=== PATIENT | female | born 1995 | race Caucasian/White ===

== ENCOUNTER 2018-12-28 09:45 | Emergency (ER) | payer OTHER ==
[~2018-12-28] VITALS: Ht 162.6 cm; Wt 54.4 kg
[2018-12-28 10:45] LABS: INFLUENZA A ANTIGEN Negative (Negative); INFLUENZA B ANTIGEN Negative (Negative)
[2018-12-28] MEDS ORDERED: NABUMETONE 750750 M1 PO (11:04)
[2018-12-28] MEDS ORDERED: AMOXICILLIN 50500 MG PO (11:04)
[2018-12-28] MEDS ORDERED: PHENERGAN 25 MG25 M1 PO (11:04)
[2018-12-28 11:14] VITALS: BP 132/81
== END 2018-12-28 11:14 | disposition home or self-care (01) ==
LOC: M.ERS 09:45
PROVIDERS: Nurse Practitioner Family
DX: J02.9 Acute pharyngitis, unspecified (principal)